=== PATIENT | male | born 1955 | race Caucasian/White ===

== ENCOUNTER → 2018-02-07 08:57 | Outpatient (CLI) | payer BC, SELFPAY | PROVIDERS: Family Provider Family Medicine; PCP Family Medicine; Visit Provider Urology | DX: N41.9 Inflammatory disease of prostate, unspecified (principal); R30.0 Dysuria | CPT/HCPCS: 36415; 84153; 87086 ==

== ENCOUNTER → 2019-03-03 16:08 | Outpatient (CLI) | payer BC, SELFPAY ==
[2019-03-03 17:11] LABS: PSA,Total- Diagnostic 5.46 ng/mL (0.0-4.0)
== END ==
PROVIDERS: Family Provider Family Medicine; PCP Family Medicine; Referring Provider Urology; Visit Provider Urology
DX: R97.20 Elevated prostate specific antigen [PSA] (principal)
CPT/HCPCS: 36415; 84153

== ENCOUNTER → 2019-04-07 17:19 | Outpatient (CLI) | payer BC, SELFPAY | PROVIDERS: Family Provider Family Medicine; PCP Family Medicine | DX: R30.0 Dysuria (principal) | CPT/HCPCS: 87086 ==

== ENCOUNTER → 2019-04-21 14:33 | Outpatient (CLI) | payer BC, SELFPAY ==
--- NOTE | 2019-04-21 14:46 | EKG12_ITS ---
Test Reason : PRE-OP Blood Pressure : / mmHG Vent. Rate : 062 BPM Atrial Rate : 062 BPM P-R Int : 196 ms QRS Dur : 084 ms QT Int : 414 ms P-R-T Axes : 047 025 173 degrees QTc Int : 420 ms Normal sinus rhythm ST & T wave abnormality, consider anterolateral ischemia Abnormal ECG Confirmed by DEANN MIRAMONTES, PAULINO ([id number]), social media editor AUDREY VILLA ([id number]) on 04/22/2019 1:10:22 PM Referred By: Elliot Woods Confirmed By:PAULINO ZACARIAS MD
[2019-04-21 16:10] LABS: Hemoglobin 14.5 g/dL (13.0-16.5); Mean Corpuscular Hgb 30.7 pg (27.0-32.0); Mean Corpuscular Volume 93.2 fL (80-94); Mean Platelet Vol. 10.2 fl (6.2-12.0); Platelet Count 248 K/mm3 (150-450); RBC Distribution Width SD 44.2 fl (35.1-43.9); Red Blood Count 4.72 M/mm3 (4.6-6.2); White Blood Count 7.2 K/mm3 (4.4-11.0)
[2019-04-21 16:17] LABS: Anion Gap 6 (5-15); BUN 17 mg/dL (7-18); Calcium,Total 9.2 mg/dL (8.5-10.1); Chloride 107 mmol/L (98-107); EST Glomerular Filtration Rate 80 mL/min (>60); Est Glom Filt Rate - Afr Amer 97 mL/min (>60); Glucose 145 mg/dL (74-106); Potassium 3.6 mmol/L (3.5-5.1); Sodium Level 141 mmol/L (136-145)
== END ==
PROVIDERS: Family Provider Family Medicine; PCP Family Medicine; Referring Provider Urology; Visit Provider Urology
DX: N40.0 Benign prostatic hyperplasia without lower urinary tract symptoms (principal); R97.20 Elevated prostate specific antigen [PSA]
CPT/HCPCS: 36415; 80048; 85027; 93005

== ENCOUNTER → 2019-04-25 15:45 | Outpatient (CLI) | payer BC, SELFPAY ==
--- NOTE | 2019-04-25 | IMM_PTH ---
PATIENT: AYANNA HUNTLEY LOC: [facility] U#:[id number] AGE/SX: 70/M ROOM: RE04/25/[address]: Dr. Elliot Woods MD : 1955 BED: DIS: SPEC #: [id number] RECD: 04/29/19 12:25 STATUS: MOE REMayela #: [id number] CILFF: 04/25/19 00:[address]: Elliot Woods DEPT: IMMUNOHISTOCHEMISTRY RECD BY: Sarah Suarez ENTERED: 04/29/19 12:25 SP TYPE: IMMUNO OTHR DR: Dr. Heri Briceño MD Tissues: A - PROSTATE RIGHT B - PROSTATE RIGHT Procedures: 34BE12 (add) P40 (add) 34BE12 (initial) PHYSICIAN & INSTITUTION [place] [id number] SPECIMEN INFORMATION: Tissue Source: A - Right prostate, base, core biopsy, B - Right prostate, mid, core biopsy Clinical Info: Elevated PSA, BPM Specimen Number: [id number] A & B CPT code: 13289, 92071 x3 METHODOLOGY: Deparaffinized sections of prefer/formalin-fixed tissue or PAP/DQ stained slides are incubated with monoclonal/polyclonal antibodies/oligonucleotide probes. Localization is made via biotin free immunoperoxidase method. Appropriate controls are performed and reacted as expected. Results on target cell population are indicated in the following table: RESULTS: ANTIBODY / CLONE RESULT Block A P40 (BC28) positive 34BE12 (34BE12) positive Block B P40 (BC28) positive 34BE12 (34BE12) positive These tests were developed and their performance characteristics determined by [facility]. They may not have been cleared or approved by the U.S. Food and Drug Administration. The FDA has determined that such clearance or approval is not necessary. The above immunohistochemical/dualISH markers are ordered and reviewed by the pathologist. INTERPRETATION: A. Right prostate, base, core biopsy: Consistent with focal high-grade prostatic intraepithelial neoplasia (HGPIN). B. Right prostate, mid, core biopsy: Consistent with focal high-grade prostatic intraepithelial neoplasia (HGPIN). SURINDER:dione 04/30/19
--- NOTE | 2019-04-25 | PROSBIL_PTH ---
PATIENT: AYANNA HUNTLEY LOC: [facility] U#:[id number] AGE/SX: 70/M ROOM: RE04/25/[address]: Dr. Elliot Woods MD : 1955 BED: DIS: SPEC #: [id number] RECD: 04/25/19 15:26 STATUS: MOE TANK #: [id number] CLIFF: 04/25/19 00:[address]: Elliot Woods DEPT: SURGICAL PATHOLOGY RECD BY: Allan Farah ENTERED: 04/28/19 09:32 SP TYPE: PROST BX MARV DR: Dr. Heri Briceño MD [facility] Tissues: A - PROSTATE RIGHT B - PROSTATE RIGHT C - PROSTATE RIGHT D - PROSTATE LEFT E - PROSTATE LEFT F - PROSTATE LEFT Procedures: PROSTATE BX HEADER OPERATION: Cystoscopy, transrectal ultrasound-guided prostate biopsy PRE-OP DIAGNOSIS: Elevated PSA, BPM TISSUE SUBMITTED: A - Right base, B - Right mid, C - Right apex, D - Left base, E - Left mid, F - Left apex MICROSCOPIC DIAGNOSIS A. Right prostate, base, core biopsy: Focal high-grade prostatic intraepithelial neoplasia (HGPIN). See comment. B. Right prostate, mid, core biopsy: Focal high-grade prostatic intraepithelial neoplasia (HGPIN). Focal mild chronic inflammation. See comment. C. Right prostate, apex, core biopsy: Prostatic, negative for malignancy. Focal atrophy. D. Left prostate, base, core biopsy: Prostatic, negative for malignancy. E. Left prostate, mid, core biopsy: Prostatic, negative for malignancy. F. Left prostate, apex, core biopsy: Prostatic, negative for malignancy. Focal atrophy. SJ:dione 04/29/19 COMMENT A & B. Immunohistochemistry ([id number]) supports the above diagnosis. Case has been reviewed in consultation with Dr. Galloway who concurs with the above diagnosis. IDC:AM MICROSCOPIC DESCRIPTION Slides are reviewed. GROSS DESCRIPTION A - Received is one container designated prostate, right base. The specimen consists of two elongated fragments of light foster-white soft tissue each measuring 1.5 cm in length and 0.1 cm in diameter. The specimen is totally submitted in one cassette. B - Received is one container designated prostate, right mid. The specimen consists of two elongated fragments of light foster-white soft tissue each measuring 1.2 cm in length and 0.1 cm in diameter. The specimen is totally submitted in one cassette. C - Received is one container designated prostate, right apex. The specimen consists of two elongated fragments of light foster-white soft tissue measuring 1.2 and 1.5 cm in length and 0.1 cm in diameter. The specimen is totally submitted in one cassette. D - Received is one container designated prostate, left base. The specimen consists of two elongated fragments of light foster-white soft tissue each measuring 1.5 cm in length and 0.1 cm in diameter. The specimen is totally submitted in one cassette. E - Received is one container designated prostate, left mid. The specimen consists of two elongated fragments of light foster-white soft tissue each measuring 1.5 cm in length and 0.1 cm in diameter. The specimen is totally submitted in one cassette. F - Received is one container designated prostate, left apex. The specimen consists of three elongated fragments of light foster-white soft tissue measuring 0.5 to 1.5 cm in length and 0.1 cm in diameter. The specimen is totally submitted in one cassette. / SJ:rg 04/28/19 TC:5 CPT: 63225 x6
== END ==
PROVIDERS: Family Provider Family Medicine; PCP Family Medicine; Referring Provider Urology; Visit Provider Urology
DX: R97.20 Elevated prostate specific antigen [PSA] (principal)
CPT/HCPCS: 88305; 88341; 88342; G0416

== ENCOUNTER → 2020-11-16 14:34 | Outpatient (CLI) | payer BC, SELFPAY ==
--- NOTE | 2020-11-16 14:43 | CT_ITS ---
STUDY: CT ABDOMEN AND PELVIS WITH AND WITHOUT CONTRAST REASON FOR EXAM: Male, 65 years old. GROSS HEMATURIA. History of kidney stones. Prior hernia repair. RADIATION DOSAGE (If Supplied By Facility): CTDIvol = ( 29.15 ) mGy, DLP = ( 4495.71 ) mGycm TECHNIQUE: Transaxial images were obtained from the dome of the diaphragm to the symphysis pubis without oral contrast. IV 100mL Isovue-300 was administered. Sagittal and coronal images were reconstructed. Individualized dose optimization techniques were used for this CT. COMPARISON: None. FINDINGS: Fine metallic wires are seen in the anterior proximal abdomen. The visualized lung bases are unremarkable. Coronary artery calcification. There is decreased attenuation of the liver consistent with steatosis. There is a solitary gallstone. Normal spleen. Normal pancreas. Normal bilateral adrenal glands. Normal right kidney. 9.3 mm cyst in the mid posterior aspect of the left kidney. Nonspecific bilateral perinephric stranding. There is a small hiatal hernia. Normal small intestine. Normal colon. The appendix is visualized and appears normal. There is scattered atherosclerotic calcification of the abdominal aorta, without a demonstrated aneurysm. Normal inferior vena cava. Normal retroperitoneum. Normal urinary bladder. There is enlargement of the prostate gland. It measures 6.7 cm x 6.3 cm. Central prostatic calcifications. There is a left-sided inguinal hernia containing adipose tissue. There are mild degenerative changes of the visualized lumbar spine. CT/CT Abd/Pelvis W/WO Contrast IMPRESSION: Prostatic enlargement with indentation at the bladder base. Prostatic calcifications. Diffuse fatty infiltration of the liver. Electronically Signed: Luis Duff MD at 15:36 EDT , Service support ,
[2020-11-16 15:06] LABS: CREATININE FINGERSTICK 1.4 mg/dL (0.70-1.30)
== END ==
PROVIDERS: PCP Family Medicine; Referring Provider Nurse Practitioner Adult Health; Visit Provider Nurse Practitioner Adult Health
DX: R31.0 Gross hematuria (principal)
CPT/HCPCS: 74178; Q9967

== ENCOUNTER 2020-12-15 08:34 | Day surgery (SDC) | payer BC, SELFPAY ==
[2020-12-09 14:44] LABS: Hematocrit 43.2 % (40-54); Hemoglobin 14.4 g/dL (13.0-16.5); Mean Corp Hgb Conc 33.3 g/dL (32-36); Mean Corpuscular Hgb 31.1 pg (27.0-32.0); Mean Corpuscular Volume 93.3 fL (80-94); Platelet Count 254 K/mm3 (150-450); RBC Distribution Width CV 12.6 % (11.6-14.6); RBC Distribution Width SD 43.2 fl (35.1-43.9); Red Blood Count 4.63 M/mm3 (4.6-6.2)
[2020-12-09 15:16] LABS: Anion Gap 4 (5-15); BUN 14 mg/dL (7-18); BUN/Creat Ratio 13.7 RATIO (10-20); Chloride 104 mmol/L (98-107); Creatinine, Serum 1.02 mg/dL (0.70-1.30); EST Glomerular Filtration Rate 78 mL/min (>60); Est Glom Filt Rate - Afr Amer 94 mL/min (>60); Glucose 167 mg/dL (74-106); Potassium 3.7 mmol/L (3.5-5.1); Sodium Level 140 mmol/L (136-145)
[2020-12-09 15:21] LABS: Hemoglobin A1c 8.3 % (3.8-5.6)
[2020-12-15] VITALS (14 sets, daily range): BP systolic 109–168; BP diastolic 72–91; PULSE 46–73; RESP 16–51; TEMP 36.2–36.7; O2SAT 92–99; BMI 38.5
[2020-12-15] MEDS: Lactated Ringers 1,000 ML 100 ML IV ×2 (09:19→13:57)
[2020-12-15 10:11] LABS: Bedside Glucose 212 mg/dL (70-110)
[2020-12-15] MEDS: Cefazolin 2 GM in 0.9% Normal Saline 100 ML IV (10:34)
--- NOTE | 2020-12-15 11:00 | PROS_PTH ---
PATIENT: AYANNA HUNTLEY [place] [facility] [place][id number] AGE/SX: 65/M ROOM: RE12/15/[address]: Dr. Elliot Woods MD : 1955 BED: DIS: 12/16/2020 SPEC #: [id number] RECD: 12/15/20 13:45 STATUS: MOE REMayela #: [id number] CLIFF: 12/15/20 11:[address]: Elliot Woods DEPT: SURGICAL PATHOLOGY RECD BY: Ese Plascencia ENTERED: 12/16/20 10:13 SP TYPE: TURP OTHR DR: MD Dr. Robert Lucas MD Tissues: Prostate, NOS Procedures: Surgery Specimen Level IV HEADER OPERATION: Cysto, TUR prostate, Olympus PRE-OP DIAGNOSIS: BPH and gross hematuria TISSUE SUBMITTED: Prostate chips MICROSCOPIC DIAGNOSIS Prostate, transurethral resection: Benign nodule hyperplasia, glandular and stromal types. Chronic inflammation with focal acute inflammation. Focal benign urothelial hyperplasia. AM:dione 12/17/2020 MICROSCOPIC DESCRIPTION Slides are reviewed. GROSS DESCRIPTION Received is one container labeled with the patient's name and designated prostate tissue. The specimen consists of multiple irregular fragments of pink-foster, rubbery, soft tissue that in aggregate weigh 44.2 gm and measure in aggregate 6 x 6 x 3.8 cm. Room Service Waiter/Waitress portions are submitted in ten cassettes. / AM:dione 12/16/20 TC:2 CPT: 85616
--- NOTE | 2020-12-15 12:29 | PCM.HP.STD ---
HPI - General HPI Narrative AYANNA HUNTLEY, is a 65 M who presents with a very large prostate organ to proceed with a transurethral resection of the prostate. He has outlet obstruction and recurrent bleeding. [facility] Medical History (Updated 12/15/20 @ 12:[address] Elliot Woods MD) Arthritis Asthma Cardiology follow-up encounter Chronic cough CPAP (continuous positive airway pressure) dependence Diabetes Heartburn High cholesterol History of atrial fibrillation History of rheumatic fever History of stress test Hypertension Injury of back Migraine headache Non-smoker Sleep apnea Wears glasses Home Medications Arnuity Ellipta 1 inh INHALATION PRN PRN 12/08/20 [History Last Taken Unknown] Xarelto 20 mg PO DAILY 12/08/20 [History Last Taken Unknown] aspirin 81 mg PO DAILY 12/08/20 [History Last Taken Unknown] atorvastatin 40 mg PO DAILY 12/08/20 [History Last Taken 12/15/20] ciprofloxacin HCl 500 mg PO BID 12/08/20 [History Last Taken Unknown] diltiazem HCl 240 mg PO DAILY 12/08/20 [History Last Taken Unknown] doxazosin 8 mg PO QHS 12/08/20 [History Last Taken Unknown] finasteride 5 mg PO DAILY 12/08/20 [History Last Taken Unknown] flecainide 100 mg PO DAILY 12/08/20 [History Last Taken Unknown] glipizide 10 mg PO BID 12/08/20 [History Last Taken Unknown] metformin 1,000 mg PO BID 12/08/20 [History Last Taken Unknown] ciprofloxacin HCl [Cipro] 500 mg PO BID #14 tab 12/15/20 [Rx Last Taken Unknown] Allergy/AdvReac Type Severity Reaction Status Date / Time sulfamethoxazole Allergy Hives Verified 12/15/20 08:40 [From Bactrim] terazosin Allergy Hives Verified 12/15/20 08:40 trimethoprim [From Bactrim] Allergy Hives Verified 12/15/20 08:40 Surgical History (Updated 12/08/20 @ 15:02 by Fior Colby) History of cystoscopy History of radiofrequency ablation procedure for cardiac arrhythmia (~2018) Hx of colonoscopy Hx of removal of neck cyst Social History Smoking Status: Never smoker Vital Signs Vital Signs Vital Signs: 12/15/20 09:09 Temperature 98.0 F Temperature Source Temporal Pulse Rate 73 Respiratory Rate 16 Respiratory Pattern Normal Blood Pressure 168/91 H Blood Pressure Mean 116 Blood Pressure Source Monitor Blood Pressure Position Semi-Fowlers Blood Pressure Location Right Arm Pulse Ox 93 Oxygen Delivery Method Room Air Weight Weight: 125.2 kg Body Mass Index (BMI) 38.5 Physical Exam Const alert and oriented x3 General Appearance: cooperative HEENT normocephalic, head/scalp atraumatic, EAC's normal and TM's normal bilaterally Eyes PERRL and EOMs intact bilaterally Pupil: sluggish Neck no lymphadenopathy, supple and no JVD General: trachea midline Lymph Lymphatic: no lymphadenopathy noted, lymphedema and lymphadenopathy Resp normal respiratory effort, normal air movement and clear to auscultation bilaterally Cardio regular rate, regular rhythm and peripheral pulses 2+ throughout GI soft to palpation, non-tender and non-distended Extremity normal capillary refill and no clubbing, cyanosis or edema General Extremity: no tenderness to palpation of joints or extremities Skin no rashes or lesions noted General Skin Exam: turgor normal Lesions: no lesions Rashes: no rashes Neuro CN's II-XII intact bilaterally Speech: speech normal Motor Exam: strength 5/5 throughout; Negative for general weakness Psych thought process normal, cooperative and affect normal Appearance: appropriate Lab / Micro Data Result Diagrams: 12/09/20 13:40 12/09/20 13:40 Labs: Laboratory Results - last 24 hr 12/15/20 09:01 POC Glucose 212 H Assessment & Plan Assessment/Plan (1) BPH with obstruction/lower urinary tract symptoms: PLAN: Plan to proceed with a transurethral resection of the prostate for large obstructive prostate.
--- NOTE | 2020-12-15 12:30 | PCM.DC ---
Discharge Instructions Diet Discharge Diet: No restrictions Activity Discharge Activity: May not drive while taking narcotic pain medications. (for 3 days.) May shower in (days): 1 Dressing / Incision Call your doctor if your incision/area has: Continuous Slow Oozing, Increased Pain/ Swelling, Increased Redness and Foul Smelling Discharge Call your doctor if you observe: Fever of 101 or Higher, Numbness or Tingling, Shortness of breath, Dizziness, Calf discomfort and Uncontrolled pain Cleanse incision/area with: Keep Dressing Clean & Dry Follow Up Care Please Follow Up With: Elliot Woods MD When: Call [phone] for an appointment Test Results: Test results from this visit will be discussed in further detail at your follow-up appointment, if applicable. Discharge Plan Admission Primary Reason for Your Visit: turbrianna Attending Provider: Elliot Woods Primary Care Provider: Heri Briceño Consulting Providers: Robert Marie Discharge Orders/Prescriptions Prescriptions: New ciprofloxacin HCl [Cipro] 500 mg tablet 500 mg PO BID Qty: 14 RF: 0 Continued atorvastatin 40 mg tablet 40 mg PO DAILY RF: 0 metformin 500 mg tablet 1,000 mg PO BID RF: 0 diltiazem HCl 240 mg capsule,extended release 24hr 240 mg PO DAILY RF: 0 glipizide 10 mg tablet 10 mg PO BID RF: 0 ciprofloxacin HCl 500 mg tablet 500 mg PO BID RF: 0 doxazosin 8 mg tablet 8 mg PO QHS RF: 0 flecainide 100 mg tablet 100 mg PO DAILY RF: 0 finasteride 5 mg tablet 5 mg PO DAILY RF: 0 Arnuity Ellipta 200 mcg/actuation blister with device 1 inh INHALATION PRN PRN (Reason: ASTHMA) RF: 0 Held aspirin 81 mg Tablet 81 mg PO DAILY RF: 0 Hold Instructions: Resume on 12/29/20. Xarelto 20 mg tablet 20 mg PO DAILY RF: 0 Hold Instructions: Resume on 12/29/20. Referrals / Follow Up: Heri Briceño MD [Primary Care Provider] - Elliot Woods MD [STAFF PHYSICIAN] -
--- NOTE | 2020-12-15 12:30 | PCM.OPRPT ---
Report of Operation Date of Procedure: 12/15/20 Pre-Operative Diagnosis: BPH with obstruction Post-Operative Diagnosis: Same Surgery/Procedure Performed:: Transurethral resection of the prostate Description of Surgical Findings:: In the preoperative setting I discussed with the patient how the surgery would be done with expect afterwards. We discussed how a prostate resection is done and we discussed the risk of the surgery including, bleeding, infection, retrograde ejaculation, changes with ejaculation or intercourse,. We discussed the possibility that the resection of the prostate may not alleviate his urinary symptoms. We discussed the small risk of developing scar tissue along the urethral channel and strictures. We also discussed the chance of the prostate could grow back and he may need further surgery or treatment in the future for prostate problems. Patient was taken back to the operating room, timeout procedure was performed, he was identified and marked and placed on the operating room table. He underwent general anesthesia. He was placed in dorsolithotomy position. Penis and testicles were prepped and draped in usual sterile fashion. Went into the bladder using the visual obturator with a resectoscope. Once inside the bladder identified the right and left ureteral orifice. I then identified the prostate and the anatomy of the prostate. I marked out the area of the sphincter and the verumontanum was identified. I then proceeded with the prostate resection first resected the median lobe. And then resected the right lobe of the prostate. Then to resect the left lobe of the prostate. I then resected the apical tissue of the prostate. Made sure that there was no injury to the sphincter or the verumontanum was still intact. At the end of the resection all the chips were Ellik out of the bladder. I then identified the left and right ureteral orifice and these were confirmed to be in good position and effluxing and not injured. The resectoscope was removed, a 22 Tristanian catheter was placed into the bladder on continuous irrigation. And the urine was fairly light pink color and draining normally. He was taken back to the PACU in good condition. Type of Anesthesia: General Drains: 22fr [address] way Admit VTE Documentation VTE Present on Admission: No VTE Mechan Device Prophylaxis: SCD's
[2020-12-15 13:26] LABS: Bedside Glucose 189 mg/dL (70-110)
[2020-12-15] MEDS: oxyCODONE 5 MG Tablet PO (16:20)
[2020-12-15] MEDS: Ciprofloxacin 400 MG/200 ML BAG 200 MG IV (17:51)
[2020-12-15] MEDS: metFORMIN HCl 1,000 MG Tablet 1000 MG PO (17:51)
[2020-12-15] MEDS: glipiZIDE 10 MG Tablet PO (17:52)
[2020-12-15] MEDS: 0.9% Normal Saline 1,000 ML 125 ML IV (19:02)
[2020-12-15] MEDS: Acetaminophen 325 MG Tablet PO (22:38)
[2020-12-15] MEDS: Docusate Sodium 100 MG Capsule PO (22:39)
[2020-12-15] MEDS: Doxazosin 4 MG Tablet 8 MG PO (22:39)
[2020-12-16 00:06] LABS: Bedside Glucose 194 mg/dL (70-110)
[2020-12-16 00:23] VITALS: BP 142/77; PULSE 88; RESP 18; TEMP 37.1; O2SAT 97
[2020-12-16 02:46] VITALS: BP 132/75; PULSE 94; RESP 18; TEMP 36.8; O2SAT 95
[2020-12-16] MEDS: 0.9% Normal Saline 1,000 ML 125 ML IV (02:50)
[2020-12-16] MEDS: Ciprofloxacin 400 MG/200 ML BAG 200 MG IV (06:33)
--- NOTE | 2020-12-16 06:56 | PN_ITS ---
Progress Note s/p turp for v large prostate Physical Exam Const alert and oriented x3 General Appearance: cooperative HEENT normocephalic, head/scalp atraumatic, EAC's normal and TM's normal bilaterally Eyes PERRL and EOMs intact bilaterally Pupil: sluggish Neck no lymphadenopathy, supple and no JVD General: trachea midline Lymph Lymphatic: no lymphadenopathy noted, lymphedema and lymphadenopathy Resp normal respiratory effort, normal air movement and clear to auscultation b ilaterally Cardio regular rate, regular rhythm and peripheral pulses 2+ throughout GI soft to palpation, non-tender and non-distended Extremity normal capillary refill and no clubbing, cyanosis or edema General Extremity: no tenderness to palpation of joints or extremities Skin no rashes or lesions noted General Skin Exam: turgor normal Lesions: no lesions Rashes: no rashes Neuro CN's II-XII intact bilaterally Speech: speech normal Motor Exam: strength 5/5 throughout; Negative for general weakness Psych thought process normal, cooperative and affect normal Appearance: appropriate Assessment & Plan Assessment/Plan (1) BPH with obstruction/lower urinary tract symptoms: PLAN: d/c luo home after voids
[2020-12-16 07:48] VITALS: BP 140/75; PULSE 79; RESP 18; TEMP 36.6; O2SAT 97
[2020-12-16] MEDS: metFORMIN HCl 1,000 MG Tablet 1000 MG PO (08:11)
[2020-12-16] MEDS: oxyCODONE 5 MG Tablet PO (08:11)
[2020-12-16] MEDS: Finasteride 5 MG Tablet PO (09:51)
[2020-12-16] MEDS: glipiZIDE 10 MG Tablet PO (09:51)
[2020-12-16] MEDS: dilTIAZem CD 240 MG Capsule PO (09:51)
[2020-12-16] MEDS: Docusate Sodium 100 MG Capsule PO (09:51)
[2020-12-16] MEDS: Flecainide 100 MG Tablet PO (09:52)
[2020-12-16 11:23] VITALS: BP 140/75; PULSE 79; RESP 18; TEMP 36.6; O2SAT 97
[2020-12-16 12:00] VITALS: O2SAT 95
== END 2020-12-16 12:08 ==
LOC: SDC 08:35 → AC 12:32 → MS3 12:32
PROVIDERS: Anesthesiology; PCP Family Medicine; Referring Provider Urology; Visit Provider Urology
PROC: (CPT 52601; principal; 2020-12-15 10:50)
DX: N40.1 Benign prostatic hyperplasia with lower urinary tract symptoms (principal); N41.1 Chronic prostatitis; N13.8 Other obstructive and reflux uropathy; E78.00 Pure hypercholesterolemia, unspecified; I48.91 Unspecified atrial fibrillation; I10 Essential (primary) hypertension; J45.909 Unspecified asthma, uncomplicated; G47.30 Sleep apnea, unspecified; Z79.01 Long term (current) use of anticoagulants; Z79.82 Long term (current) use of aspirin; Z79.84 Long term (current) use of oral hypoglycemic drugs; Z79.899 Other long term (current) drug therapy
CPT/HCPCS: 52601; 36415; 80048; 82962; 83036; 85027; 88305; J7030; J7120; J0744; J2405

== ENCOUNTER → 2021-02-17 | Outpatient (CLI) | payer BC, SELFPAY ==
[2020-12-15 15:05] VITALS: BMI 38.5
== END | disposition home or self-care (01) ==
LOC: LABSPEC 15:42
PROVIDERS: PCP Family Medicine; Visit Provider Urology
DX: R31.0 Gross hematuria (principal)
CPT/HCPCS: 87086; 87088

== ENCOUNTER → 2021-03-15 | Outpatient (CLI) | payer BC, SELFPAY ==
[2021-03-15 16:01] LABS: Microalbumin:Creatinine Ratio 455.8 mg/g CRE (<30 mg/g CRE)
== END | disposition home or self-care (01) ==
PROVIDERS: PCP Family Medicine; Referring Provider Nurse Practitioner Family; Visit Provider Nurse Practitioner Family
DX: E11.9 Type 2 diabetes mellitus without complications (principal)
CPT/HCPCS: 82043; 82570

== ENCOUNTER 2023-06-01 07:40 | Observation (INO) | payer MEDICARE, SELFPAY ==
[2023-05-24 08:18] LABS: Hemoglobin 14.6 g/dL (13.0-16.5); Mean Corp Hgb Conc 32.4 g/dL (32-36); Mean Corpuscular Hgb 30.8 pg (27.0-32.0); Mean Corpuscular Volume 94.9 fL (80-94); Mean Platelet Vol. 9.8 fl (6.2-12.0); Platelet Count 247 K/mm3 (150-450); RBC Distribution Width SD 45.6 fl (35.1-43.9); Red Blood Count 4.74 M/mm3 (4.6-6.2); White Blood Count 6.2 K/mm3 (4.4-11.0)
[2023-05-24 08:39] LABS: Anion Gap 3 (5-15); BUN 17 mg/dL (7-18); BUN/Creat Ratio 16.8 RATIO (10-20); Calcium,Total 9.3 mg/dL (8.5-10.1); Chloride 109 mmol/L (98-107); Creatinine, Serum 1.01 mg/dL (0.70-1.30); EST Glomerular Filtration Rate 78 mL/min (>60); Est Glom Filt Rate - Afr Amer 95 mL/min (>60); Glucose 153 mg/dL (74-106); Potassium 3.9 mmol/L (3.5-5.1); Sodium Level 142 mmol/L (136-145)
[2023-06-01] VITALS (12 sets, daily range): BP systolic 129–166; BP diastolic 72–93; PULSE 51–80; RESP 16–20; TEMP 36.4–36.9; O2SAT 92–96; BMI 35.4; BMI 35.5
--- NOTE | 2023-06-01 | PROS_PTH ---
PATIENT: AYANNA HUNTLEY LOC: [facility] U#:[id number] AGE/SX: 67/M ROOM: [facility] [place] RE06/01/[address]: Dr. Elliot Woods MD : 1955 BED: 1 DIS: 06/02/2023 SPEC #: [id number] RECD: 06/01/23 13:50 STATUS: MOE TANK #: [id number] CLIFF: 06/01/23 00:[address]: Elliot Woods DEPT: SURGICAL PATHOLOGY RECD BY: Bryce Shahid ENTERED: 06/01/23 13:50 SP TYPE: TURP OTHR DR: Dr. Jak Enriquez, DO Tissues: Prostate, NOS Procedures: Surgery Specimen Level IV HEADER OPERATION: Transurethral resection prostate repeat, inject Botox PRE-OP DIAGNOSIS: Urgency TISSUE SUBMITTED: Prostate chips MICROSCOPIC DIAGNOSIS Prostate, transurethral resection: Prostatic adenocarcinoma. See cancer template below. AM:dione 06/08/2023 COMMENT PROSTATE CANCER (TUR) SUMMARY: Procedure - transurethral resection of prostate (TURP) Specimen size - 4.0 x 3.5 x 1.5 cm Histologic type - adenocarcinoma Histologic grade - 6 (3+3) Percent of pattern 5 - 0 Intraductal carcinoma - not identified Percent of tissue involved - 5% Number of chips - 1 Dimension - 6.0 millimeters Additional dimension - 4.8 millimeters Periprostatic fat invasion - not applicable Seminal vesicle invasion - not applicable Lymphvascular invasion - not applicable Perineural invasion - not identified Treatment effect - unknown Additional pathologic findings - benign nodular hyperplasia. The above summary is in compliance with [employer] (CAP) Cancer Protocols Checklist and [place] [employer] Committee on Cancer (AJCC), Staging Manual, 8th Ed. Immunohistochemistry ([id number]) supports the above diagnosis. MICROSCOPIC DESCRIPTION Slides are reviewed. GROSS DESCRIPTION Received is one container labeled with the patient's name and designated prostate chips. The specimen consists of multiple irregular fragments of pink-foster, rubbery, soft tissue that in aggregate weigh 5 gm and measure in aggregate 4.0 x 3.5 x 1.5 cm. Two minute fragments of brown stones are also noted. The entire soft tissue is submitted in five cassettes. / SURINDER:dione 06/01/2023 TC:0 CPT: 79714
--- NOTE | 2023-06-01 | IMM_PTH ---
PATIENT: AYANNA HUNTLEY LOC: [facility] U#:[id number] AGE/SX: 67/M ROOM: [id number] RE06/01/[address]: Dr. Elliot Woods MD : 1955 BED: 1 DIS: 06/02/2023 SPEC #: [id number] RECD: 06/06/23 07:34 STATUS: MOE REQ #: [id number] CLIFF: 06/01/23 00:[address]: Elliot Woods DEPT: IMMUNOHISTOCHEMISTRY RECD BY: Sarah Suarez ENTERED: 06/06/23 07:36 SP TYPE: IMMUNO OTHR DR: Dr. Jak Enriquez, DO Tissues: Prostate, NOS Procedures: SMA (add) CK20 (add) CK7 (add) CK8 (add) KI-67 (add) P53 (add) 34BE12 (add) Pankeratin (initial) Pankeratin (add) P40 (add) PSAP (add) PHYSICIAN & [address] [address] SPECIMEN INFORMATION: Tissue Source: Prostate [facility] Clinical Info: Araseli Specimen Number: [id number] #3-5 CPT code: 23321, 58601 x29 METHODOLOGY: Deparaffinized sections of prefer/formalin-fixed tissue or PAP/DQ stained slides are incubated with monoclonal/polyclonal antibodies/oligonucleotide probes. Localization is made via biotin free immunoperoxidase method. Appropriate controls are performed and reacted as expected. Results on target cell population are indicated in the following table: RESULTS: ANTIBODY / CLONE RESULT Block 3 AE1-3 (AE1/AE3/PCK26) positive, luminal CK7 (OV-TL12/30) negative CK8 (59ogbmD81) positive CK20 (KS20.8) negative 34BE12 (34BE12) negative Actin (1A4) negative PSAP (PASE/4LJ) positive P53 (DO-7) negative, null pattern Ki-67 (30-9) positive, low P40 (BC28) negative Block 4 AE1-3 (AE1/AE3/PCK26) positive CK7 (OV-TL12/30) negative CK8 (42wcicW29) positive CK20 (KS20.8) negative 34BE12 (34BE12) positive Actin (1A4) positive PSAP (PASE/4LJ) positive P53 (DO-7) negative, null pattern Ki-67 (30-9) positive, rare P40 (BC28) positive Block 5 AE1-3 (AE1/AE3/PCK26) positive CK7 (OV-TL12/30) negative CK8 (21acfzI44) positive CK20 (KS20.8) negative 34BE12 (34BE12) positive Actin (1A4) positive PSAP (PASE/4LJ) positive P53 (DO-7) negative, null pattern Ki-67 (30-9) positive, rare P40 (BC28) positive These tests were developed and their performance characteristics determined by [facility]. They may not have been cleared or approved by the U.S. Food and Drug Administration. The FDA has determined that such clearance or approval is not necessary. The above immunohistochemical/dualISH markers are ordered and reviewed by the Pathologist. INTERPRETATION: Prostate chips, transurethral resection: Focal adenocarcinoma. AM:dione 06/08/2023
[2023-06-01] MEDS: Lactated Ringers 1,000 ML 15 ML IV (06:25)
[2023-06-01 06:50] LABS: Bedside Glucose 126 mg/dL (74-106)
[2023-06-01] MEDS: Botulinum Toxin A 100 Units Vial IJ (07:32)
[2023-06-01] MEDS: Cefazolin 2 GM in 0.9% Normal Saline (100mL Bag) 100 ML IV (07:32)
[2023-06-01] MEDS: 0.9% Normal Saline (Pres. free 10 ML Vial (07:32)
[2023-06-01] MEDS: Lubricating Jelly 60 GM Tube 30 GM (07:32)
--- NOTE | 2023-06-01 07:44 | HP.PCM_ITS ---
HPI - General General Date of Service: 06/01/23 Chief Complaint: Urge incontinence BPH with obstruction HPI Narrative AYANNA HUNTLEY, is a 67 M who presents for a transurethral resection of the prostate he has regrowth and some blockage also has urge incontinence can get Botox in the bladder [facility] Medical History (Updated 05/21/23 @ 14:58 by Gabby Mcmahon) Alcohol use Arthritis Asthma Cardiology follow-up encounter Chronic cough CPAP (continuous positive airway pressure) dependence Diabetes Gastric reflux Heartburn Herniated nucleus pulposus, L4-5 High cholesterol History of atrial fibrillation History of echocardiogram History of rheumatic fever History of stress test Hypertension Injury of back Loss of hearing Migraine headache Neuropathy Non-smoker Obesity Sleep apnea Wears glasses Home Medications atorvastatin 40 mg tablet 40 mg PO DAILY 12/08/20 [History Last Taken 12/15/20] diltiazem HCl 240 mg capsule,extended release 24 hr 360 mg PO DAILY 12/08/20 [History Last Taken 06/01/23] flecainide 100 mg tablet 100 mg PO DAILY 12/08/20 [History Last Taken Unknown] rivaroxaban 20 mg tablet (Xarelto) 20 mg PO QHS 12/08/20 [History Last Taken ] esomeprazole magnesium 20 mg capsule,delayed release (Nexium) 20 mg PO DAILY PRN PRN GERD 09/20/21 [History Last Taken Unknown] cholecalciferol (vitamin D3) 50 mcg (2,000 unit) capsule 50 mcg PO DAILY 05/31/22 [History Last Taken Unknown] vitamin b12 2,500 mcg sublingual MOWEFR 05/31/22 [History Last Taken Unknown] Trulicity 3 mg/0.5 mL subcutaneous pen injector (dulaglutide) 3 mg (0.5 mL) subcut QWEEK #6 mL 04/03/23 [Rx Last Taken Unknown] metformin 500 mg tablet 1,000 mg (2 x 500 mg) PO BID #180 tabs 04/03/23 [Rx Last Taken Unknown] Farxiga 10 mg tablet (dapagliflozin propanediol) 10 mg PO DAILY #90 tabs 04/09/23 [Rx Last Taken Unknown] losartan 25 mg tablet 25 mg PO QHS 05/21/23 [History Last Taken Unknown] cephalexin 500 mg capsule 500 mg PO TID #15 caps 06/01/23 [Rx Last Taken Unknown] Allergy/AdvReac Type Severity Reaction Status Date / Time sulfamethoxazole Allergy Hives Verified 06/01/23 06:06 [From Bactrim] terazosin Allergy Hives Verified 06/01/23 06:06 trimethoprim [From Bactrim] Allergy Hives Verified 06/01/23 06:06 Surgical History (Updated 05/21/23 @ 12:28 by Gabby Mcmahon) History of cystoscopy History of hernia surgery History of radiofrequency ablation procedure for cardiac arrhythmia (~2018) History of transurethral resection of prostate Hx of colonoscopy Hx of removal of neck cyst Social History Smoking Status: Never smoker Vital Signs Vital Signs Vital Signs: 06/01/23 06:17 06/01/23 06:17 Temperature 97.8 F Temperature Source Temporal Pulse Rate 61 Respiratory Rate 18 Respiratory Pattern Normal Blood Pressure 152/78 H Blood Pressure Mean 102 Blood Pressure Source Monitor Blood Pressure Position Semi-Fowlers Blood Pressure Location Right Arm Pulse Ox 95 Oxygen Delivery Method Room Air Weight Weight: 115.3 kg Body Mass Index (BMI) 35.4 Results Lab / Micro Data 05/24/23 07:45 05/24/23 07:45 Labs: Laboratory Results - last 24 hr 06/01/23 06:09: POC Glucose 126 H
--- NOTE | 2023-06-01 07:44 | DCINST_ITS ---
Discharge Instructions Diet Discharge Diet: No restrictions Activity Discharge Activity: Return to Normal Activity and May Not Drive (while taking narcotic pain medications.) Dressing / Incision Call your doctor if you observe: Fever of 101 or Higher Follow Up Care Please Follow Up With: Elliot Jean MD When: Call [phone] for an appointment Test Results: Test results from this visit will be discussed in further detail at your follow- up appointment, if applicable. Discharge Plan Admission Primary Reason for Your Visit: TURP and injection of Botox Attending Provider: Elliot Jean Primary Care Provider: Jak Enriquez Discharge Orders/Prescriptions Prescriptions: New cephalexin 500 mg capsule 500 mg PO TID Qty: 15 0RF Continued esomeprazole magnesium [Nexium] 20 mg capsule,delayed release(DR/EC) 20 mg PO DAILY PRN PRN (Reason: GERD) cholecalciferol (vitamin D3) 50 mcg (2,000 unit) capsule 50 mcg PO DAILY vitamin b12 2,500 mcg sublingual MOWEFR Rx Instructions: 2500 mcg 3-4 times a week Trulicity 3 mg/0.5 mL pen injector 3 mg subcut QWEEK Qty: 6 3RF metformin 500 mg tablet 1,000 mg PO BID Qty: 180 1RF atorvastatin 40 mg tablet 40 mg PO DAILY Patient Comments: TAKE 1 TABLET BY MOUTH EVERY DAY diltiazem HCl 240 mg capsule,extended release 24hr 360 mg PO DAILY Patient Comments: TAKE 1 CAPSULE BY MOUTH EVERY DAY flecainide 100 mg tablet 100 mg PO DAILY Patient Comments: TAKE 1 TABLET BY MOUTH EVERY DAY losartan 25 mg tablet 25 mg PO QHS Farxiga 10 mg tablet 10 mg PO DAILY Qty: 90 3RF Held Xarelto 20 mg tablet 20 mg PO QHS Hold Instructions: Resume on 06/18/23. Patient Comments: TAKE 1 TABLET BY MOUTH EVERY EVENING; PER DR JEAN, LAST DOSE WILL BE 05/28/23 FOR SURGERY ON 06/01/23 Referrals / Follow Up: Heri Briceño MD [Non-Staff] - Elliot Jean MD [Med Staff - Active Staff] - Disposition Disposition (needs filled in before D/C Order can be placed): Home, Self Care
--- NOTE | 2023-06-01 08:26 | OP.PCM_ITS ---
Report of Operation Date of Procedure: 06/01/23 Pre-Operative Diagnosis: Urgency symptoms difficulty with urination status post TURP a few years ago Post-Operative Diagnosis: The same Surgery/Procedure Performed:: Cystoscopy, evacuation and removal of small stone cystolitholapaxy, injection of Botox in the bladder 100 units, transurethral resection of regrowth of the prostate causing obstruction Description of Surgical Findings:: This is a 67-year-old male had a history of a very large prostate he underwent a trans urethral resection of the prostate in the past came back to my office and still complaining of difficulty with urination frequency urgency pain or discomfort when I looked inside the bladder I found that he had a significant regrowth of the channel with obstruction he had multiple stones inside the bladder there is a small stones and appear to have an overactive bladder so today we can inject Botox in the bladder we can remove the small stones that I think are irritating the bladder and organ to do a resection of the regrowth of the tissue causing some obstruction hopefully when this is done patient will experience improvement of urinary symptoms and relief of his problems. Patient was taken back to the operating room and after smooth induction of general anesthesia he was placed in dorsolithotomy position. Went of the bladder with a 21 Ethiopian rigid cystourethroscope entire length the urethra was normal the sphincter was intact verumontanum was identified in front of verumontanum circumferentially can see the sphincter so this looked nice and good and intact inside the prostate channel he had significant regrowth coming back from the right side of the prostate there was a lot of stones that are encrusted on this regrowth and some stones in the base of the bladder and once it went inside the bladder used a Botox needle and prepared the Botox in the back table and injected Botox in 10 spots in the back of the bladder to help calm the bladder muscles down did appear to have a very trabeculated heavy leakage with trabeculated bladder looked overactive. After this was done then I spoke to switched over to the 24 Ethiopian noncontinuous flow Olympus bipolar resectoscope I first counted scraped off the stones and evacuated out through the scope and then I switched over to the resection loop used a medium loop and very carefully started at the base working my way up on the right side and carefully resected all of his regrowth tissue thus causing obstruction and I resected down to the capsule on the right side and very carefully resected back to the verumontanum and the sphincter sphincter was intact had a wide open flow at the end of resection cauterized got all of the bleeding stopped and then we put a 22 Ethiopian catheter into the bladder with continuous irrigation we will keep overnight for irrigation. Surgeon: Elliot Woods Type of Anesthesia: General Drains: [address] Admit VTE Documentation VTE Present on Admission: No VTE Mechan Device Prophylaxis: SCD's VTE Pharm Prophylaxis ordered?: No
[2023-06-01 09:02] LABS: Bedside Glucose 134 mg/dL (74-106)
[2023-06-01] MEDS: Ketorolac 15 MG/ML Vial IV ×2 (09:46→20:28)
--- NOTE | 2023-06-01 10:00 | EKG12_ITS ---
Test Reason : Blood Pressure : / mmHG Vent. Rate : 059 BPM Atrial Rate : 059 BPM P-R Int : 246 ms QRS Dur : 092 ms QT Int : 414 ms P-R-T Axes : 080 028 149 degrees QTc Int : 409 ms Sinus bradycardia with marked sinus arrhythmia with 1st degree A-V block T wave abnormality, consider anterolateral ischemia Abnormal ECG When compared with ECG of 21-APR-2019 15:00, [place] interval has increased Confirmed by DEANN MIRAMONTES, PAULINO ([id number]), art editor AUDREY VILLA ([id number]) on 06/13/2023 12:57:51 PM Referred By: Elliot Woods Confirmed By:PAULINO ZACARIAS MD
[2023-06-01] MEDS: 0.9% Normal Saline (1000mL) 1,000 ML 125 ML IV ×2 (10:28→17:27)
[2023-06-01] MEDS: Docusate Sodium 100 MG Capsule 200 MG PO ×2 (13:33→21:21)
[2023-06-01] MEDS: metFORMIN HCl 500 MG Tablet 1000 MG PO ×2 (13:33→21:21)
[2023-06-01] MEDS: Atorvastatin Calcium 40 MG Tablet PO (13:34)
[2023-06-01] MEDS: Flecainide 100 MG Tablet PO ×2 (13:34→21:21)
[2023-06-01] MEDS: oxyCODONE 5 MG Tablet PO (15:10)
[2023-06-01] MEDS: Empagliflozin 25 MG Tablet PO (17:12)
[2023-06-01] MEDS: Losartan Potassium 25 MG Tablet PO (21:23)
[2023-06-01] MEDS: Morphine 2 MG/ML Syringe IV (21:26)
[2023-06-02] MEDS: Morphine 2 MG/ML Syringe IV ×2 (01:08→06:03)
[2023-06-02 01:09] VITALS: BP 158/77; PULSE 85; RESP 16; TEMP 36.4; O2SAT 94
[2023-06-02 01:15] VITALS: BMI 35.5
[2023-06-02] MEDS: 0.9% Normal Saline (1000mL) 1,000 ML 125 ML IV ×2 (01:19→08:30)
[2023-06-02 05:54] VITALS: BP 171/85; PULSE 87; RESP 16; TEMP 36.6; O2SAT 96
[2023-06-02] MEDS: dilTIAZem CD 180 MG Capsule 360 MG PO (06:02)
[2023-06-02] MEDS: Flecainide 100 MG Tablet PO (06:03)
[2023-06-02 06:06] VITALS: BMI 35.5
[2023-06-02 07:45] VITALS: O2SAT 95
[2023-06-02 08:30] VITALS: BMI 35.5
[2023-06-02] MEDS: Ketorolac 15 MG/ML Vial IV (08:35)
[2023-06-02] MEDS: oxyCODONE 5 MG Tablet PO (08:35)
--- NOTE | 2023-06-02 09:03 | PCM.PN.GU ---
Subjective Subjective Status post TURP, urine is clear today, also removal of stones and injection of Botox in the bladder to help with urgency issues. We can remove the catheter today and he can go home today after urinates follow-up in the office in 3 to 4 weeks. Objective Data Objective Data Vital Signs: Vital Signs Temp Pulse Resp BP Pulse Ox O2 Del Method O2 Flow Rate 97.8 F 87 16 171/85 H 95 Room Air 3 06/02/23 05:54 06/02/23 05:54 06/02/23 05:54 06/02/23 05:54 06/02/23 07:45 06/02/23 07:45 06/01/23 09:45 Oxygen Flow Rate (L/min) 3 Oxygen Delivery Method Room Air Weight: 115.3 kg Body Mass Index (BMI) 35.4 Intake & Output: Intake and Output for Last 24 Hours 05/31/23 06/01/23 06/02/23 23:59 23:59 23:59 Intake Total / 3381.25 / 3381.25 Output Total 2300 / 2300 Balance / 1081.25 / 1081.25 Lab / Micro Data 05/24/23 07:45 05/24/23 07:45
[2023-06-02 09:04] VITALS: BP 153/93; PULSE 78; RESP 18; TEMP 36.8; O2SAT 96
--- NOTE | 2023-06-02 09:56 | CASEMGMT ---
REY CM in to discuss HALE form with patient. RN CM explained HALE form, patient voiced understanding. Pt signed form and filed in chart. Pt provided with a copy of signed HALE form. Patient had no further questions or concerns at this time.
[2023-06-02] MEDS: Docusate Sodium 100 MG Capsule 200 MG PO (10:22)
[2023-06-02] MEDS: Empagliflozin 25 MG Tablet PO (10:23)
[2023-06-02] MEDS: metFORMIN HCl 500 MG Tablet 1000 MG PO (10:23)
== END 2023-06-02 11:14 | disposition home or self-care (01) ==
LOC: SDC 11:39 → MS3 11:39
PROVIDERS: Anesthesiology; Admitting Provider Urology; Referring Provider Urology; Visit Provider Urology
PROC: (CPT 52317; principal; 2023-06-01 07:20)
DX: C61 Malignant neoplasm of prostate (principal); E11.40 Type 2 diabetes mellitus with diabetic neuropathy, unspecified; N40.1 Benign prostatic hyperplasia with lower urinary tract symptoms; E78.00 Pure hypercholesterolemia, unspecified; I10 Essential (primary) hypertension; N39.41 Urge incontinence; Z79.84 Long term (current) use of oral hypoglycemic drugs; N13.8 Other obstructive and reflux uropathy; Z79.899 Other long term (current) drug therapy; N21.0 Calculus in bladder
CPT/HCPCS: 52317; 52630; 52287; 00910; 36415; 80048; 82962; 85027; 88305; 88341; 88342; 93005; 94668; 96361; 96374; 96375; 96376; 99221; 99252; J7030; J7120; G0378; G0463; J0585; J2405; J3490

== ENCOUNTER → 2024-05-12 | Outpatient (CLI) | payer MEDICARE, SELFPAY ==
[2024-05-12 10:22] LABS: PSA,Total- Diagnostic 0.25 ng/mL (0.0-4.0)
== END | disposition home or self-care (01) ==
PROVIDERS: Referring Provider Nurse Practitioner; Visit Provider Nurse Practitioner
DX: C61 Malignant neoplasm of prostate (principal)
CPT/HCPCS: 36415; 84153